=== PATIENT | female | born 1970 | race Caucasian/White ===

== ENCOUNTER → 2016-10-10 | Outpatient (CLI) | payer BC ==
--- NOTE | 2016-10-10 10:39 | REP ---
MRI RIGHT SHOULDER: TECHNIQUE: Axial T2 fat sat, gradient echo, sagittal oblique T2 fat sat, coronal oblique T1, T2 fat sat. Ill-defined high signal is seen in the supraspinatus tendon on T2-weighted images compatible with tendinopathy/tendinitis. I suspect a small bursal surface tear. Other rotator cuff tendons appear intact. There are mild hypertrophic degenerative changes of the acromioclavicular joint with mild subchondral cystic changes. The acromion is not hooked in shape. The biceps tendon is within the bicipital groove with no tenosynovitis. There is no Hill-Sachs deformity. Deltoid muscle demonstrates no abnormal signal. I suspect a tear at the base of the superior labrum at the biceps labral complex. Other portions of the labrum appear intact. A couple of tiny subchondral cysts are seen in the humeral head. There is no bone marrow edema or occult fracture. Small amount of fluid is seen in the subacromial bursa. IMPRESSION: Supraspinatus tendinopathy/tendinitis with possible small tear along the bursal surface. Mild hypertrophic degenerative changes acromioclavicular joint. I suspect a tear of the superior labrum anteriorly at the biceps labral complex. This could be confirmed with MR arthrography. A small amount of fluid in the subacromial bursa. Signed by Lan Suarez MD 10/10/2016 04:01 P
== END ==
LOC: M RAD 08:41
PROVIDERS: ATTEND Physician Assistant
DX: S43.431A Superior glenoid labrum lesion of right shoulder, initial encounter (principal); X58.XXXA Exposure to other specified factors, initial encounter; Y92.9 Unspecified place or not applicable; Y93.9 Activity, unspecified; Y99.9 Unspecified external cause status

== ENCOUNTER → 2018-08-27 | Outpatient (REF) | payer OTHER | LOC: M LAB LCGH 12:15 | PROVIDERS: ATTEND Family Medicine | DX: Z12.4 Encounter for screening for malignant neoplasm of cervix (principal) ==

== ENCOUNTER → 2020-10-30 | Outpatient (REF) | payer OTHER ==
[2020-10-30 17:14] LABS: THYROGLOBULIN ANTIBODY > 500.0 U/ML (<60.0); THYROID PEROXIDASE ANTIBODY 171.2 U/ML (<60.0)
== END ==
LOC: M LAB REF 16:17
PROVIDERS: ATTEND Internal Medicine
DX: E03.9 Hypothyroidism, unspecified (principal); Z12.72 Encounter for screening for malignant neoplasm of vagina